=== PATIENT | male | born 1965 ===

== ENCOUNTER 2021-11-28 10:42 | Day surgery (SDC) | payer SELFPAY ==
[~2021-11-28] VITALS: Ht 177.8 cm; Wt 76.5 kg
[2021-11-28] VITALS (10 sets, daily range): BP systolic 117–186; BP diastolic 52–138; PULSE 59–88; TEMP 98.4
[2021-11-28] MEDS ORDERED: PREDNISONE1 MG (11:06)
[2021-11-28] MEDS ORDERED: LIPITOR 10MG10 MG PO (11:07)
[2021-11-28] MEDS ORDERED: FLEXERIL 1010 MG/TAB PO (11:07)
[2021-11-28] MEDS ORDERED: PRINIVIL10 MG PO (11:08)
[2021-11-28] MEDS ORDERED: NITROSTAT0.4 MG/TAB SL (11:09)
[2021-11-28] MEDS ORDERED: TOPROL XL 25MG25 MG PO (11:09)
[2021-11-28 12:04] LABS: HEMOGLOBIN 12.4 g/dl (13.5-18.0); MEAN CELL VOLUME 90 fl (80.0-100.0); MEAN CORPUSCULAR HEMOGLOBIN 30 pg (27-31); MEAN CORPUSCULAR HGB CONC 33 g/dl (33.0-37.0); MEAN PLATELET VOLUME 9.8 fl (7.4-10.4); PLATELET COUNT 287 K/mm3 (130-400); RED BLOOD COUNT 4.21 M/mm3 (4.20-5.60)
--- NOTE | 2021-11-28 12:06 | NUR ---
SEE MERGE FOR ALL MEDICATION ADMINISTRATION TIMES/DOSAGES AND INTRA/POST PROCEDURE SEDATION ASSESSMENTS. PRE PROCEDURE ASSESSMENT COMPLETED IN [facility].
[2021-11-28 12:07] LABS: PROTHROMBIN TIME 11.3 SECONDS (9.7-12.8)
[2021-11-28 12:15] LABS: CALCIUM 8.5 mg/dL (8.4-10.2); CREATININE, serum 0.92 mg/dL (0.72-1.25); POTASSIUM 4.2 mmol/L (3.5-4.5)
--- NOTE | 2021-11-28 13:15 | NUR ---
Pt back to [facility] from [facility] operator. Pt is relaxed, drowsy, aaox4, pwd with reg and unlabored respirations. TR band to rt wrist, cms intact distal. SR on monitor. Pt updated on poc, lunch ordered. call light in reach.
--- NOTE | 2021-11-28 16:10 | NUR ---
Pt ready for departure at this time. TR band was deflated with no problem. site dressed with bandaid, folded 2x2 and coban, cms remains intact. I have reviewed dc/fu instructions with pt, who verbalized understanding. Pt has been up and steady on his feet, IV is dc'd with cath intact, dressing applied. Pt escorted to exit via wheelchair.
== END 2021-11-28 17:07 | disposition home or self-care (01) ==
LOC: COL.CAR 10:42
PROVIDERS: Internal Medicine Cardiovascular Disease
DX: R07.89 Other chest pain (principal); E78.5 Hyperlipidemia, unspecified; N18.9 Chronic kidney disease, unspecified; I12.9 Hypertensive chronic kidney disease with stage 1 through stage 4 chronic kidney disease, or unspecified chronic kidney disease; R63.4 Abnormal weight loss; Z79.899 Other long term (current) drug therapy; I25.2 Old myocardial infarction
CPT/HCPCS: J1644; J2250; J3010; J7030; Q9967

== ENCOUNTER → 2022-06-19 | Outpatient (CLI) | payer MEDICAID ==
[~2022-06-19] MED LIST: FLEXERIL 1010 MG/TAB PO; LIPITOR 10MG10 MG PO; NITROSTAT0.4 MG/TAB SL; PREDNISONE1 MG; PRINIVIL10 MG PO; TOPROL XL 25MG25 MG PO
== END ==
LOC: COL.PUL 07:46
DX: Z02.71 Encounter for disability determination (principal); R06.02 Shortness of breath